=== PATIENT | female | born 1995 | race African-American/Black ===

== ENCOUNTER 2021-06-22 11:07 | Emergency (ER) | payer OTHER ==
[~2021-06-22] VITALS: Ht 167.6 cm; Wt 108.0 kg
[2021-06-22 11:10] VITALS: BP 119/73
[2021-06-22] MEDS ORDERED: DIPH25CA83 PO (13:01)
[2021-06-22] MEDS ORDERED: P50 PO (13:01)
[2021-06-22] MEDS ORDERED: HYDR-4622 TP (13:01)
[2021-06-22] MEDS ORDERED: NAPR-681 PO (13:04)
== END 2021-06-22 13:26 | disposition home or self-care (01) ==
LOC: ER 11:07
DX: T78.49XA Other allergy, initial encounter (principal); X58.XXXA Exposure to other specified factors, initial encounter; L50.9 Urticaria, unspecified; Z88.0 Allergy status to penicillin
CPT/HCPCS: 99283

== ENCOUNTER 2022-03-18 13:15 | Emergency (ER) | payer OTHER ==
[~2022-03-18] VITALS: Ht 162.6 cm; Wt 108.0 kg
[~2022-03-18 13:15] MED LIST: DIPH25CA83 PO; HYDR-4622 TP; NAPR-681 PO; P50 PO
[2022-03-18 13:34] VITALS: BP 132/80
[2022-03-18] MEDS ORDERED: ACETAMINOPHEN 325MG TABLET PO PRN (15:15)
[2022-03-18 17:17] LABS: BASOPHILS % 0.9 % (0.0-2.0); EOSINOPHILS % 0.8 % (0.0-5.0); HEMATOCRIT. 39.6 % (36.0-48.0); HEMOGLOBIN. 13.2 g/dL (12.0-16.0); LYMPHOCYTES % 32.3 % (20.0-50.0); MEAN CORPUSCULAR HEMOGLOBIN 29.6 pg (28.0-32.0); MEAN CORPUSCULAR VOLUME 88.6 fL (81.0-99.0); MEAN PLATELET VOLUME 9.6 fl (7.4-10.4); MONOCYTES % 5.6 % (2.0-8.0); NEUTROPHILS % 60.4 % (40.0-76.0); PLATELET 223 x1000/uL (130-400); RED BLOOD CELL COUNT 4.47 mill/uL (4.2-5.4); RED CELL DISTRIBUTION WIDTH 14.3 % (11.6-14.6)
[2022-03-18 17:26] LABS: CHLORIDE 107 mEq/L (98-107)
[2022-03-18 17:38] LABS: B-HCG QUANTITATIVE < 1 mIU/mL (<3)
[2022-03-18] MEDS ORDERED: NAPR-681 PO (18:11)
[2022-03-18] MEDS ORDERED: TRAM50TA3 PO (18:11)
== END 2022-03-18 18:47 | disposition home or self-care (01) ==
LOC: ER 13:15
DX: D25.9 Leiomyoma of uterus, unspecified (principal); N92.0 Excessive and frequent menstruation with regular cycle; R03.0 Elevated blood-pressure reading, without diagnosis of hypertension
CPT/HCPCS: 36415; 76830; 76856; 80053; 81025; 84702; 85025; 99284